=== PATIENT | female | born 1970 | race Caucasian/White ===

== ENCOUNTER 2018-01-21 00:12 | Emergency (ER) | payer OTHER ==
[2018-01-21] MEDS: IBUPROFEN 600 MG TAB PO (00:53)
== END 2018-01-21 01:15 | disposition home or self-care (01) ==
LOC: FTE 00:12
DX: S20.162A Insect bite (nonvenomous) of breast, left breast, initial encounter (principal); W57.XXXA Bitten or stung by nonvenomous insect and other nonvenomous arthropods, initial encounter; Y92.9 Unspecified place or not applicable
CPT/HCPCS: 36415; 86617; 99283-25